=== PATIENT | male | born 1955 | race Hispanic/Latino ===

== ENCOUNTER 2017-09-12 09:09 | Day surgery (SDC) | payer BC ==
[~2017-09-12] VITALS: Ht 185.4 cm; Wt 115.7 kg
[2017-09-12] MEDS ORDERED: ADAL40KI SQ (10:40)
[2017-09-12] MEDS ORDERED: HBP PO (10:40)
[2017-09-12] MEDS ORDERED: ASPI-555 PO (10:40)
[2017-09-12] MEDS ORDERED: SODIUM CHLORIDE 0.9% 1000ML 1,000 ML IV ONE (10:41)
[2017-09-12] MEDS ORDERED: PROPOFOL 10 MG/ML 20ML VIAL IV ONE ×2 (11:10→11:37)
[2017-09-12 11:42] VITALS: BP 123/62
== END 2017-09-12 12:15 | disposition home or self-care (01) ==
LOC: ENDO 09:09 → DAH 09:09 → ENDO 12:15
PROVIDERS: ATTEND Internal Medicine Gastroenterology
DX: K63.5 Polyp of colon (principal); K21.9 Gastro-esophageal reflux disease without esophagitis; Z86.010 Personal history of colon polyps; Z68.35 Body mass index [BMI] 35.0-35.9, adult; M06.9 Rheumatoid arthritis, unspecified
CPT/HCPCS: 43239; 45380; 88304; 88305; 88312; A4606; J2704 ×2; J7030